=== PATIENT | male | born 1970 | race Hispanic/Latino ===

== ENCOUNTER 2020-12-02 12:18 | Emergency (ER) | payer MEDICARE ==
[2020-12-02 13:15] LABS: Basophils # (Auto) 0.1 K/mm3 (0.0-0.1); Basophils % (Auto) 0.6 % (0.0-1.8); Eosinophils # (Auto) 0.2 K/mm3 (0.0-0.4); Eosinophils % (Auto) 1.7 % (0.0-4.3); Hematocrit 48.9 % (35.5-45.6); Hemoglobin 17.1 gm/dl (11.8-15.2); Lymphocytes # (Auto) 2.5 K/mm3 (1.2-5.4); Lymphocytes % (Auto) 28.6 % (13.4-35.0); Mean Corpuscular HGB Conc 35 % (32-34); Mean Corpuscular Volume 97 fl (84-94); Monocytes # (Auto) 0.8 K/mm3 (0.0-0.8); Monocytes % (Auto) 9.3 % (0.0-7.3); Platelet Count 222 K/mm3 (140-440); Red Blood Count 5.04 M/mm3 (3.65-5.03); Red Cell Distribution Width 12.6 % (13.2-15.2)
[2020-12-02] MEDS ORDERED: ONDANSETRON 4 MG/2 ML INJ IV ONE ×2 (13:18→16:46)
[2020-12-02] MEDS ORDERED: MORPHINE 4 MG/1 ML INJ IV ONE ×2 (13:18→16:45)
[2020-12-02] MEDS ORDERED: ONDANSETRON 4 MG/2 ML INJ ONE (13:20)
[2020-12-02] MEDS ORDERED: MORPHINE 4 MG/1 ML INJ ONE (13:20)
[2020-12-02 13:36] LABS: Alanine Aminotransferase 107 units/L (7-56); Albumin 5.1 g/dL (3.9-5); BUN/Creatinine Ratio 17; Blood Urea Nitrogen 19 mg/dL (9-20); Calcium 10.8 mg/dL (8.4-10.2); Hemolysis Index 15
[2020-12-02 13:41] LABS: INR 0.87 (0.87-1.13); Partial Thromboplastin Time 26.4 Sec. (24.2-36.6)
--- NOTE | 2020-12-02 14:38 | Emergency Department Report ---
ED General Adult HPI - General Chief complaint: Animal Bite Stated complaint: BIT BY COPPERHEAD Time Seen by Provider: 12/02/20 12:32 Source: patient Mode of arrival: Ambulatory Limitations: No Limitations - History of Present Illness Initial comments: Patient presents emergency department for a presumed snake bite to his right hand. Patient states he was helping a friend do some yard work when he was bitten by a snake on the second digit of his right hand. Patient states he had leather work gloves on. Patient states that it was a copperhead snake that bit him. He complains of pain to that digit. Patient has no other complaints. Severity scale (0 -10): 9 - Related Data Previous Rx's Medication Instructions Recorded Last Taken Type HYDROcodone/APAP 7.5-325 [[place] 1 each PO Q6HR PRN #20 tablet 12/02/20 Unknown Rx 7.5/325] Allergies Allergy/AdvReac Type Severity Reaction Status Date / Time codeine Allergy Unknown Verified 12/02/20 12:22 phenytoin [From Dilantin] Allergy Unknown Verified 12/02/20 12:21 tramadol Allergy Unknown Verified 12/02/20 12:22 ED Review of Systems ROS: Stated complaint: BIT BY COPPERHEAD Other details as noted in HPI Constitutional: denies: chills, fever Eyes: denies: eye pain, eye discharge, vision change ENT: denies: ear pain, throat pain Respiratory: denies: cough, shortness of breath, wheezing Cardiovascular: denies: chest pain, palpitations Endocrine: no symptoms reported Gastrointestinal: denies: abdominal pain, nausea, diarrhea Genitourinary: denies: urgency, dysuria Musculoskeletal: denies: back pain, joint swelling, arthralgia Skin: denies: rash, lesions Neurological: denies: headache, weakness, paresthesias Psychiatric: denies: anxiety, depression Hematological/Lymphatic: denies: easy bleeding, easy bruising ED Past Medical Hx - Past Medical History Previous Medical History?: Yes Hx Asthma: Yes - Surgical History Past Surgical History?: Yes Additional Surgical History: hernia repair - Medications Home Medications: Home Medications Medication Instructions Recorded Confirmed Last Taken Type HYDROcodone/APAP 7.5-325 [[place] 1 each PO Q6HR PRN #20 tablet 12/02/20 Unknown Rx 7.5/325] ED Physical Exam - General Limitations: No Limitations ED Course Vital Signs 12/02/20 12/02/20 12/02/20 12:21 13:31 13:50 Temperature 98.1 F Pulse Rate 108 H 102 H Respiratory 18 16 18 Rate Blood Pressure 154/83 135/87 O2 Sat by Pulse 98 99 97 Oximetry 12/02/20 12/02/20 12/02/20 14:01 14:31 15:01 Temperature Pulse Rate 84 94 H 82 Respiratory 20 14 13 Rate Blood Pressure 139/92 137/86 145/79 O2 Sat by Pulse 98 97 97 Oximetry 12/02/20 12/02/20 12/02/20 15:31 16:01 16:31 Temperature Pulse Rate 97 H 86 85 Respiratory 22 20 18 Rate Blood Pressure 136/82 131/81 123/83 O2 Sat by Pulse 97 97 96 Oximetry 12/02/20 17:01 Temperature Pulse Rate 84 Respiratory 15 Rate Blood Pressure 130/80 O2 Sat by Pulse 97 Oximetry ED Medical Decision Making - Lab Data Result diagrams: 12/02/20 12:57 12/02/20 12:57 Lab Results 12/02/20 12/02/20 12/02/20 Range/Units 12:57 12:57 12:57 WBC 8.8 (4.5-11.0) K/mm3 RBC 5.04 H (3.65-5.03) M/mm3 Hgb 17.1 H (11.8-15.2) gm/dl Hct 48.9 H (35.5-45.6) % MCV 97 H (84-94) fl MCH 34 H (28-32) pg MCHC 35 H (32-34) % RDW 12.6 L (13.2-15.2) % Plt Count 222 (140-440) K/mm3 Lymph % (Auto) 28.6 (13.4-35.0) % [place] % (Auto) 9.3 H (0.0-7.3) % Eos % (Auto) 1.7 (0.0-4.3) % Baso % (Auto) 0.6 (0.0-1.8) % Lymph # (Auto) 2.5 (1.2-5.4) K/mm3 [place] # (Auto) 0.8 (0.0-0.8) K/mm3 Eos # (Auto) 0.2 (0.0-0.4) K/mm3 Baso # (Auto) 0.1 (0.0-0.1) K/mm3 Seg Neutrophils % 59.8 (40.0-70.0) % Seg Neutrophils # 5.3 (1.8-7.7) K/mm3 PT 12.3 (12.2-14.9) Sec. INR 0.87 (0.87-1.13) APTT 26.4 (24.2-36.6) Sec. Fibrinogen 403 (211-480) mg/dl Sodium 142 (137-145) mmol/L Potassium 3.9 (3.6-5.0) mmol/L Chloride 98.7 (98-107) mmol/L Carbon Dioxide 31 H (22-30) mmol/L Anion Gap 16 mmol/L BUN 19 (9-20) mg/dL Creatinine 1.1 (0.8-1.3) mg/dL Estimated GFR > 60 ml/min BUN/Creatinine Ratio 17 % Glucose 88 (75-100) mg/dL Calcium 10.8 H (8.4-10.2) mg/dL Total Bilirubin 0.60 (0.1-1.2) mg/dL AST 60 H (5-40) units/L ALT 107 H (7-56) units/L Alkaline Phosphatase 130 H (35-129) units/L Total Creatine Kinase 98 (55-170) units/L Total Protein 8.0 (6.3-8.2) g/dL Albumin 5.1 H (3.9-5) g/dL Albumin/Globulin Ratio 1.8 % - Medical Decision Making Contacted poison control at 12:32 PM At 12:34 PM I was told that they will have to call me back due to the high volumes Mohit 12:39 PM I did receive a phone call back from poison control patient was discussed in detail. Plan of care will be as follows To mobilize and elevate the extremity Tdap Collect coagulation and CK To take 3 measurements proximal to the bite to 15 minutes for the next hour We should evaluate for progressing edema a test the case CroFab should be given Which also live coagulopathy and systemic symptoms We should repeat coagulation studies in 8 hours and the patient does not have elevated coagulation studies or any other above-mentioned reasons to give CroFab the patient can be discharged home The patient was observed for greater than 8 hours The patient circumference at 3 proximal regions x3 remain the same Repeat coagulation studies are normal Critical Care Time: Yes Critical care time in (mins) excluding proc time.: 90 Critical care attestation.: If time is entered above; I have spent that time in minutes in the direct care of this critically ill patient, excluding procedure time. ED Disposition Clinical Impression: Envenomation, Snake bite Disposition: DC- TO HOME OR SELFCARE Is pt being admited?: No Does the pt Need Aspirin: No Condition: Stable Instructions: Snake Bite Additional Instructions: return if worse Prescriptions: HYDROcodone/APAP 7.5-325 [[place] 7.5/325] 1 each PO Q6HR PRN #20 tablet PRN Reason: Pain Referrals: PRIMARY CARE, [Primary Care Provider] - 3-5 Days Time of Disposition: 21:53
[2020-12-02] MEDS ORDERED: TETANUS,DIPH,PERTUSS(ACELL) VACCINE 0.5 ML SYRINGE IM ONE (14:46)
[2020-12-02] MEDS ORDERED: oxyCODONE /ACETAMINOPHEN 5-325MG TAB PO ONE (21:03)
[2020-12-02 21:47] LABS: INR 0.89 (0.87-1.13)
[2020-12-02 21:48] LABS: Partial Thromboplastin Time 27.9 Sec. (24.2-36.6)
[2020-12-03 06:35] VITALS: BP 134/86
== END 2020-12-02 22:45 | disposition home or self-care (01) ==
LOC: ED 12:18
DX: T63.091A Toxic effect of venom of other snake, accidental (unintentional), initial encounter (principal); J45.909 Unspecified asthma, uncomplicated; Z98.890 Other specified postprocedural states; Z88.5 Allergy status to narcotic agent; Z88.8 Allergy status to other drugs, medicaments and biological substances; Y92.89 Other specified places as the place of occurrence of the external cause
CPT/HCPCS: 36415; 80053; 82550; 85025; 85384; 85610; 85730; 90471; 90715; 96374; 96375; 96376; 99283; J2270; J2405